=== PATIENT | male | born 1995 | race Caucasian/White ===

== ENCOUNTER 2019-02-22 08:51 | Emergency (ER) | payer OTHER ==
--- NOTE | 2019-02-22 10:06 | XRAY Report ---
Reason: injury Procedure Date: 02/22/2019 Accession Number: [id number] / [id number] Procedure: XR - Hand 3 View RT CPT Code: Final Report FULL RESULT: EXAM: RIGHT HAND RADIOGRAPHY EXAM DATE: 02/22/2019 09:39 AM. CLINICAL HISTORY: Injury. COMPARISON: None. TECHNIQUE: 3 views. FINDINGS: Bones: Normal. No fractures or bone lesions. Joints: Normal. No subluxations. Soft Tissues: Normal. No soft tissue swelling. IMPRESSION: Normal hand radiography. [facility]
--- NOTE | 2019-02-22 10:10 | ED Physician Documentation ---
PD HPI UPPER EXT INJURY - Stated complaint Stated Complaint: RT HAND PX - Chief complaint Chief Complaint: Trauma Ext - History obtained from History obtained from: Patient - History of Present Illness Location: Right, Hand Type of injury: Twist, Other (strangulation) Where injury occurred: Home Timing - onset: Yesterday Timing - duration: Days (1) Timing - details: Abrupt onset, Still present Improved by: Rest, Ice, Immobilization Worsened by: Moving, Palpating Associated symptoms: Swelling. No: Weakness, Numbness Similar symptoms before: Has not had sx before Recently seen: Not recently seen - Additonal information Additional information: 23 y/o male was assisting with a farm animal stringing it up and he had a rope wrapped around his hand and he was pulling on it and his Dad pulled on the other side of the rope and it squished his hand. He has developed swelling and pain in the hand and this is worse today. He does not have functional deficit. Review of Systems Constitutional: denies: Fever Nose: denies: Congestion Throat: denies: Sore throat Cardiac: denies: Chest pain / pressure Respiratory: denies: Dyspnea, Cough GI: denies: Nausea, Vomiting PD PAST MEDICAL HISTORY - Allergies Allergies/Adverse Reactions: Allergies Allergy/AdvReac Type Severity Reaction Status Date / Time Sulfa (Sulfonamide Allergy Hives Verified 02/22/19 09:18 Antibiotics) - Social History Does the pt smoke?: No Smoking Status: Never smoker PD ED PE NORMAL - Vitals Vital signs reviewed: Yes (hypertensive ) - General General: Alert and oriented X 3, No acute distress, Well developed/nourished - HEENT HEENT: Atraumatic, PERRL, EOMI - Respiratory Respiratory: No respiratory distress - Derm Derm: Normal color, Warm and dry, No rash - Extremities Extremities: Other (There is swelling and tenderness to the dorsum of the right hand over the 2nd, 3rd and 4th metacarpals. There is discoloration to the skin consistent with bruising. There is no fucntional deficit, no crepitance and the distal n/v is intact. ) - Neuro Neuro: Alert and oriented X 3, account liaison 2-12 intact, No motor deficit, No sensory deficit, Normal speech Eye Opening: Spontaneous Motor: Obeys Commands Verbal: Oriented GCS Score: 15 - Psych Psych: Normal mood, Normal affect Results - Vitals Vitals: Vital Signs - 24 hr 02/22/19 02/22/19 09:18 10:48 Temperature 37.1 C 36.6 C Heart Rate 70 75 Respiratory 18 17 Rate Blood Pressure 152/101 H 148/92 H O2 Saturation 99 98 Oxygen O2 Source Room air - Rads (name of study) hand Radiology: Prelim report reviewed (Impression: Normal hand radiography.), EMP read indepedently, See rad report Procedures - Splint (location) right hand Splint applied by: Nurse Type of splint: Fiberglass, Volar cock up Other: Patient tolerated well, No complications, Neurovascular intact, Good alignment PD MEDICAL DECISION MAKING - ED course Complexity details: reviewed results, re-evaluated patient, considered differential, d/w patient ED course: 23 y/o male with a compression injury to the right hand without evidence of fracture has improvement in the splint. He is instructed to wear it for comfort and expect resolution in 1-2 weeks. Departure - Departure Disposition: 01 Home, Self Care Clinical Impression: Contusion of right hand, initial encounter Condition: Stable Instructions: ED Sprain Hand Follow-Up: Gayathri Silva PA-C [Primary Care Provider] - Discharge Date/Time: 02/22/19 10:48
[2019-02-22 10:49] VITALS: BP 148/92
== END 2019-02-22 10:48 | disposition home or self-care (01) ==
LOC: ED 08:51
DX: S60.221A Contusion of right hand, initial encounter (principal); W23.0XXA Caught, crushed, jammed, or pinched between moving objects, initial encounter; Y93.K9 Activity, other involving animal care; Y92.009 Unspecified place in unspecified non-institutional (private) residence as the place of occurrence of the external cause
CPT/HCPCS: 29125; 99282; 99283

== ENCOUNTER 2019-10-05 12:35 | Emergency (ER) | payer OTHER ==
[2019-10-05] MEDS ORDERED: BUFFERED LIDOCAINE 10 ML SYRINGE SUBQ STA (12:42)
--- NOTE | 2019-10-05 12:43 | ED Physician Documentation ---
PD HPI LOWER EXT INJURY - Stated complaint Stated Complaint: TOE INJURY - History obtained from History obtained from: Patient (Walking through the [place] in flip-flops and the dorsum of the left foot at the level of the pinky toe was cut by a stick that kind of stabbed him. Tetanus is up-to-date.) - History of Present Illness Timing - onset: Today (Just prior to arrival) Review of Systems Constitutional: reports: Reviewed and negative Throat: reports: Reviewed and negative Cardiac: reports: Reviewed and negative PD PAST MEDICAL HISTORY - Allergies Allergies/Adverse Reactions: Allergies Allergy/AdvReac Type Severity Reaction Status Date / Time Sulfa (Sulfonamide Allergy Hives Verified 02/22/19 09:18 Antibiotics) - Social History Does the pt smoke?: No Smoking Status: Never smoker PD ED PE NORMAL - Vitals Vital signs reviewed: Yes - General General: Alert and oriented X 3, No acute distress - Extremities Extremities: Other (There is a 1.2 cm laceration over the dorsum of the left pinky toe at the level of the MTP without distal neurovascular compromise or bony tenderness. Good strength in extension.) - Neuro Neuro: Alert and oriented X 3, Normal speech Results - Vitals Vitals: Vital Signs - 24 hr 10/05/19 12:42 Temperature 36.9 C Heart Rate 96 Respiratory 16 Rate Blood Pressure 155/101 H O2 Saturation 98 Oxygen O2 Source Room air Procedures - Laceration (location) L foot Length in cm: 1.2 Wound type: Linear, Into subcut fat, Contaminated (with dirt grit, scrubbed out without residual) Neurovascular status: Sensory intact, Motor intact, Vascular intact Tendon involvement: Tendon intact Anesthesia: Lidocaine 1%, With bicarb Wound Preparation: Hibiclens, Irrigated copiously NS Skin layer closure: Nylon, Interrupted, Size #-0 - enter number (4-0), Sutures - enter # (6) Other: Tetanus UTD Complexity: Simple Departure - Departure Disposition: 01 Home, Self Care Clinical Impression: Foot laceration Qualifiers: Encounter type: initial encounter Laterality: left Qualified Code(s): S91.312A - Laceration without foreign body, left foot, initial encounter Condition: Good Record reviewed to determine appropriate education?: Yes Instructions: ED Laceration Foot Comments: Come back for any signs of infection which would include: Redness, swelling, drainage, increased pain, or fevers. You can wash it soap and water. Keep it covered and moist with bacitracin ointment which is available over the counter; avoid neosporin. Follow-up with your physician in About 14 days for suture removal.
[2019-10-05 13:18] VITALS: BP 140/94
== END 2019-10-05 13:17 | disposition home or self-care (01) ==
LOC: ED 12:35
DX: S91.312A Laceration without foreign body, left foot, initial encounter (principal); W22.8XXA Striking against or struck by other objects, initial encounter; Y93.01 Activity, walking, marching and hiking; Y92.821 Forest as the place of occurrence of the external cause
CPT/HCPCS: 12001; 99282; 99283

== ENCOUNTER 2019-10-20 07:21 | Outpatient (CLI) | payer OTHER ==
[2019-10-20 12:12] LABS: BASOPHILS % (AUTO) 0.7 %; EOSINOPHILS # (AUTO) 0.3 10^3/uL (0.0-0.7); EOSINOPHILS % (AUTO) 5.5 %; HGB - HEMOGLOBIN 15.1 g/dL (14.0-18.0); LYMPHOCYTES % (AUTO) 35.1 %; MEAN CORPUSCULAR HEMOGLOBIN 29.3 pg (27.0-31.0); MEAN CORPUSCULAR HGB CONC 32.3 g/dL (32.0-36.0); MEAN CORPUSCULAR VOLUME 90.7 fL (80.0-94.0); MEAN PLATELET VOLUME 9.8 fL (7.4-11.4); MONOCYTES # (AUTO) 0.5 10^3/uL (0.0-1.0); MONOCYTES % (AUTO) 9.6 %; NEUTROPHILS # (AUTO) 2.7 10^3/uL (1.5-6.6); NEUTROPHILS % (AUTO) 48.2 %; PLT - PLATELET COUNT 234 10^3/uL (130-450); RED BLOOD COUNT 5.15 10^6/uL (4.70-6.10); WHITE BLOOD COUNT 5.6 x10^3/uL (4.8-10.8)
[2019-10-20 12:46] LABS: ALBUMIN 4.3 g/dL (3.2-5.5); ALBUMIN/GLOBULIN RATIO 1.7 (1.0-2.2); ALKALINE PHOSPHATASE 39 IU/L (42-121); ALT ALANINE AMINOTRANSFERASE 25 IU/L (10-60); AST ASPARTATE AMINOTRANSFERASE 19 IU/L (10-42); BILIRUBIN,TOTAL 0.6 mg/dL (0.2-1.0); BUN - BLOOD UREA NITROGEN 15 mg/dL (6-20); CALCIUM 9.2 mg/dL (8.5-10.3); CARBON DIOXIDE - CO2 29 mmol/L (21-32); CHLORIDE 103 mmol/L (101-111); CHOL/HDL RATIO 2.6 (<5.0); CHOLESTEROL 150 mg/dL; CREATININE 0.9 mg/dL (0.6-1.2); GLUCOSE 97 mg/dL (70-100); HDL CHOLESTEROL 58 mg/dL; LDL CHOLESTEROL,CALCULATED 84 mg/dL; LDL/HDL RATIO 1.4 (<3.6); SODIUM 138 mmol/L (135-145); TOTAL PROTEIN 6.9 g/dL (6.7-8.2); VLDL CHOLESTEROL 8 mg/dL
== END 2019-10-20 23:59 | disposition home or self-care (01) ==
LOC: LAB.WCP 07:21
PROVIDERS: ATTEND Physician Assistant Medical
DX: Z00.00 Encounter for general adult medical examination without abnormal findings (principal)
CPT/HCPCS: 36415; 80053; 80061; 83721; 84443; 85025

== ENCOUNTER 2021-01-24 11:03 | Day surgery (SDC) | payer OTHER ==
[~2021-01-24 11:03] MED LIST: CEFAZOLIN SODIUM IN 0.9 % NACL 2 GM/100 ML BAG IV ONE
[2021-01-24] MEDS ORDERED: LACTATED RINGERS 1,000 ML IV ONE (11:28)
[2021-01-24] MEDS ORDERED: BUPIVACAINE 0.5% PF 10 ML VIAL ONE (12:07)
[2021-01-24] MEDS ORDERED: LIDOCAINE 2%-EPI 1:100000 20 ML MDV ONE (12:07)
[2021-01-24] MEDS ORDERED: ceFAZolin 1 GM VIAL ONE (12:07)
--- NOTE | 2021-01-24 12:08 | ANESTHESIA ---
Pre-Anesthesia VS, & Labs - Diagnosis right inguinal hernia - Procedure right inguinal hernia repair Vital Signs: Temp Pulse Resp BP Pulse Ox 37.2 C 84 16 151/98 H 100 01/24/21 11:15 01/24/21 11:15 01/24/21 11:15 01/24/21 11:15 01/24/21 11:15 Height: 6 ft 2 in Weight (kg): 102 kg Body Mass Index: 28.8 BMI Classification: Overweight - NPO >8 hours Home Medications and Allergies Home Medications: Ambulatory Orders Albuterol Sulfate [Proair Hfa Inhaler] 1 - 2 puffs INH Q4H PRN 01/18/21 Albuterol Sulfate [Proair Hfa Inhaler] 1 - 2 puffs INH Q4H PRN 01/18/21 Allergies/Adverse Reactions: Allergies Allergy/AdvReac Type Severity Reaction Status Date / Time bee venom protein (honey bee) Allergy Unknown Verified 10/07/19 10:46 Sulfa (Sulfonamide Allergy Hives Verified 02/22/19 09:18 Antibiotics) Anes History & Medical History - Anesthetic History Anesthesia Complications: reports: No previous complications - Medical History Cardiovascular: reports: None Pulmonary: reports: Asthma Gastrointestinal: reports: Other Urinary: reports: None Musculoskeletal: reports: Scoliosis, Chronic back pain Endocrine/Autoimmune: reports: None Skin: reports: None Smoking Status: Never smoker History of Cancer?: No - Surgical History Orthopedic: reports: Other (knee scope) Exam General: Alert, Oriented x3 Mallampati classification: II Thyromental Distance: greater than 6 cm Respiratory: Lungs clear Cardiovascular: Regular rate Plan Anesthesia Type: General Consent for Procedure(s) Verified and Reviewed: Yes Code Status: Attempt Resuscitation ASA classification: 2-Mild systemic disease Is this case an emergency?: No
[2021-01-24] MEDS ORDERED: fentaNYL 100 MCG/2 ML VIAL IVP PRN (12:09)
[2021-01-24] MEDS ORDERED: MORPHINE 2 MG/ML CARPUJECT IVP PRN (12:09)
[2021-01-24] MEDS ORDERED: NALOXONE 0.4 MG/ML VIAL IVP PRN (12:09)
[2021-01-24] MEDS ORDERED: ONDANSETRON 4 MG/2 ML VIAL IVP PRN ×2 (12:09→15:07)
[2021-01-24] MEDS ORDERED: METOCLOPRAMIDE 10 MG/2 ML VIAL IVP PRN (12:09)
[2021-01-24] MEDS ORDERED: ATROPINE ABBOJECT 1 MG/10 ML SYRINGE IVP PRN (12:09)
[2021-01-24] MEDS ORDERED: HYDROmorphone 0.5 MG/0.5 ML SYRINGE IVP PRN (12:09)
[2021-01-24] MEDS ORDERED: ePHEDrine 50 MG/ML VIAL IVP PRN (12:09)
[2021-01-24] MEDS ORDERED: LIDOCAINE 2%-EPI 1:100000 20 ML MDV SUBQ ONE (12:23)
[2021-01-24] MEDS ORDERED: BUPIVACAINE 0.5% PF 30 ML VIAL SUBQ ONE (12:23)
[2021-01-24] MEDS ORDERED: ceFAZolin 1 GM VIAL IR ONE (12:23)
[2021-01-24] MEDS ORDERED: LACTATED RINGERS 1,000 ML IV SCH (13:00)
[2021-01-24] MEDS ORDERED: SODIUM CHLORIDE 0.9% 10 ML VIAL IVP ONE (13:21)
[2021-01-24] MEDS ORDERED: LIDOCAINE-MPF 2% 5 ML VIAL ONE (13:40)
[2021-01-24] MEDS ORDERED: PROPOFOL 200 MG/20 ML VIAL IVP ONE (13:40)
[2021-01-24] MEDS ORDERED: fentaNYL 100 MCG/2 ML VIAL ONE (13:40)
[2021-01-24] MEDS ORDERED: MIDAZOLAM 2 MG/2 ML VIAL ONE (13:40)
[2021-01-24] MEDS ORDERED: ONDANSETRON 4 MG/2 ML VIAL ONE (14:28)
[2021-01-24] MEDS ORDERED: DEXAMETHASONE 4 MG/ML VIAL ONE (14:28)
--- NOTE | 2021-01-24 15:06 | OPERATIVE REPORT ---
Operative Report - General Procedure Date: 01/24/21 Planned Procedure: Repair of right inguinal hernia Pre-Op Diagnosis: Symptomatic right inguinal hernia Procedure Performed: Repair of right inguinal hernia Post Op Diagnosis: Somatic direct right inguinal hernia - Procedure Note Primary Surgeon: Sanju Anesthesia Provider: CHRIS Velazco Anesthesia Technique: General LMA, Local Pathology: None Estimated Blood Loss (mL): 10 Indications: Large and symptomatic right inguinal hernia Findings: Large direct right inguinal hernia with obliteration of the inguinal floor Complications: None apparent - Other Other Information/Narrative: After obtaining informed consent, the patient is brought to the operating room and placed in the supine position on the operating table. Following successful induction of general endotracheal anesthesia, appropriate padding of all bony prominences, and placement of appropriate monitors, the abdomen was prepped and draped in the standard surgical fashion. A timeout was held per scope protocol. All elements of the surgical safety checklist were followed before, during, and after the procedure. We began the procedure by infiltrating a mixture of local anesthetics medial to the anterior superior iliac spine on the right. This was done to create an ileal inguinal nerve block. We then selected a site for an incision in the right lower quadrant just superior and lateral to the right pubic tubercle. This area was anesthetized with additional local anesthetic and an incision was created here.The incision was carried down through the skin and subcutaneous tissue to reveal the fascia of the external oblique aponeurosis. Retractor was placed and the aponeurosis was opened in direction of its fibers. The ilioing uinal nerve was immediately identified. We continued by identifying the spermatic cord and gently encircling it with a Danny drain. The hernia sac was carefully dissected free from the cord structures and was noted to be in the inferior lateral position. It consisted primarily of a large direct inguinal hernia. The hernia contents were placed back into the abdominal cavity. We elected to repair the hernia with a large Prolene hernia system mesh implant. This was dipped in Ancef containing solution and then deployed into the defect. The posterior leaflet was straightened and flattened in the preperitoneal space. The anterior leaflet was then nicked medially to provide a place for the spermatic cord and then closed with a Prolene suture. The more inferior aspect was then sewn to Flaco's ligament medially. Laterally it was tucked under the external beak aponeurosis. The wound was checked for hemostasis and irrigated with warm saline solution. It was aspirated free of all fluid and particulate matter. The extra oblique aponeurosis was then closed with a running locking Vicryl suture Ebony's fascia was closed with Vicryl suture and Monocryl stitches were placed in the skin. All sponge, needle, and instrument counts were correct at the conclusion of the case. The patient was allowed awaken from anesthesia without difficulty and taken to the postanesthesia care unit in good condition.
[2021-01-24] MEDS ORDERED: IBUPROFEN 600 MG TABLET PO PRN (15:07)
[2021-01-24] MEDS ORDERED: oxyCODONE 5 MG TABLET PO PRN (15:07)
[2021-01-24] MEDS ORDERED: ACETAMINOPHEN 325 MG TABLET PO PRN (15:07)
[2021-01-24] MEDS ORDERED: LACTATED RINGERS 350 ML IV ONE (15:09)
[2021-01-24] MEDS ORDERED: ACETAMINOPHEN 1,000 MG/100 ML 100 ML IV PRN (15:14)
--- NOTE | 2021-01-24 15:14 | ANESTHESIA POST OP EVALUATION ---
Anesthesia Post Eval - Post Anesthesia Eval Vitals: Last Vital Signs Temp 37.2 C 01/24/21 11:15 Pulse 84 01/24/21 11:15 Resp 16 01/24/21 11:15 BP 151/98 H 01/24/21 11:15 Pulse Ox 100 01/24/21 11:15 CV Function Including HR & BP: Stable Pain Control: Satisfactory Nausea & Vomiting: Negative Mental Status: Baseline Respiratory Status: Airway Patent Hydration Status: Satisfactory Anesthesia Complications: None
[2021-01-24 16:17] VITALS: BP 147/84
== END 2021-01-24 11:04 | disposition home or self-care (01) ==
LOC: SDS 11:03
PROVIDERS: ATTEND Surgery
DX: K40.90 Unilateral inguinal hernia, without obstruction or gangrene, not specified as recurrent (principal); M41.9 Scoliosis, unspecified; G89.29 Other chronic pain; M54.9 Dorsalgia, unspecified; Z87.891 Personal history of nicotine dependence
CPT/HCPCS: 49505; C1781; J0690; J7120

== ENCOUNTER 2022-04-03 08:04 | Emergency (ER) | payer BC, OTHER ==
[2022-04-03] MEDS ORDERED: AMOX/CLAV 875 MG/125 MG TABLET PO STA (08:13)
--- NOTE | 2022-04-03 08:14 | ED Physician Documentation ---
PD HPI WOUND RECHECK - Stated complaint Stated Complaint: FACIAL DOG BITE - Chief complaint Chief Complaint: Wound - Histroy obtained from History obtained from: Patient - Additional information Additional information: Otherwise healthy 26-year-old gentleman with up-to-date tetanus status was playing with his dog last night and she accidentally bit him on the inside of the lower lip. No other injuries. This happened around 6 PM yesterday. The dog is healthy and fully immunized as well. He went [facility] but waited for several hours without being seen so went home and now presents this morning for evaluation. Review of Systems Nose: denies: Epistaxis Neurologic: denies: Headache, Head injury, LOC PD PAST MEDICAL HISTORY - Past Medical History Cardiovascular: None Respiratory: Asthma Endocrine/Autoimmune: None GI: Other : None HEENT: Chronic sinusitis Psych: None Musculoskeletal: Scoliosis, Chronic back pain Derm: None - Past Surgical History Past Surgical History: Yes Ortho: Other (knee scope) - Present Medications Home Medications: Ambulatory Orders Medication Instructions Recorded Confirmed Albuterol Sulfate [Proair Hfa 1 - 2 puffs INH Q4H PRN 01/18/21 01/18/21 Inhaler] Docusate Sodium 100Mg Capsule 200 mg PO DAILY #20 cap 01/24/21 [Colace 100Mg Capsule] Ondansetron Odt [Zofran Odt] 4 mg TL Q6H PRN #10 tablet 01/24/21 oxyCODONE [Roxicodone] 5 mg PO Q4-6H PRN #20 tablet 01/24/21 Amox/Clav 875/125 [Augmentin] 1 each PO Q12H #10 tablet 04/03/22 - Allergies Allergies/Adverse Reactions: Allergies Allergy/AdvReac Type Severity Reaction Status Date / Time bee venom protein (honey bee) Allergy Unknown Verified 04/03/22 08:12 Sulfa (Sulfonamide Allergy Hives Verified 04/03/22 08:12 Antibiotics) - Social History Does the pt smoke?: No Smoking Status: Never smoker Does the pt drink ETOH?: Yes Does the pt have substance abuse?: No - Immunizations Immunizations are current?: Yes Immunizations: TDAP current <10years - POLST Patient has POLST: No PD ED PE NORMAL - Vitals Vital signs reviewed: Yes - General General: Alert and oriented X 3, No acute distress - HEENT HEENT: PERRL, EOMI - Neck Neck: Supple, no meningeal sign, No bony TTP - Neuro Neuro: Alert and oriented X 3, Normal speech - Psych Psych: Normal mood, Normal affect PD ED PE EXPANDED - HEENT HEENT Visual: 1 - laceration (2 cm jagged shallow laceration kind of at the intersection between the buccal and gingival mucosa. No loose teeth.) Results - Vitals Vitals: Vital Signs - 24 hr 04/03/22 08:09 Temperature 36.4 C L Heart Rate 97 Respiratory 16 Rate Blood Pressure 153/90 H O2 Saturation 97 Oxygen O2 Source Room air PD Medical Decision Making - ED course Reviewed Lab Results: Not applicable Drug Therapy Requiring Monitoring for Toxicity: Not applicable Procedural Risk Factors Specific to Patient: Not applicable ED course: 26-year-old gentleman with a shallow laceration of the mucosal surface of the inner lower lip from a dog bite. Will place on Augmentin. He is up-to-date on tetanus. Given wound care advice but this should heal fine without closure especially given the time course. Departure - Departure Disposition: 01 Home, Self Care Clinical Impression: Laceration of mouth Qualifiers: Encounter type: initial encounter Qualified Code(s): S01.512A - Laceration without foreign body of oral cavity, initial encounter Condition: Good Record reviewed to determine appropriate education?: Yes Instructions: ED Laceration Mouth Prescriptions: Amox/Clav 875/125 [Augmentin] 1 each PO Q12H #10 tablet Comments: Again, avoid acidic foods and sharp foods until its healed, salt water swishes 3 times a day to clean it out. Return for signs of infection which would include swelling, increased pain, fever.
[2022-04-03 08:15] VITALS: BP 153/90
--- OUTSIDE RECORDS SUMMARY | 2022-04-03 08:23 | EXTERNAL MEDICAL SUMMARY RPT | Continuity of Care Document ---
:1995 Author Organization [facility] Address [address] [place] [address] Phone Care Team Providers Name Role Phone Gayathri Silva Unavailable Unavailable Allergies and Intolerances date description facility type (no date) Sulfa (Sulfonamide Antibiotics) [facility] (unknown) (no date) bee pollen [facility] (unknown) Encounters No information. Functional Status No information. Immunizations No information. Medications No information. Problems date description facility 2022-04-02 00:00 Patient left without being seen [facility] Procedures No information. Results/Labs test date author facility value unit interpret ation Result panel 1 (unknown) (no (unknown) (unknown) (no value) (units (unk nown) date) unknown) (unknown) (no (unknown) (unknown) 0.3 mg IM PRN (units ( unknown) date) PRN (Reason: unknown) Allergic Reaction) (unknown) (no (unknown) (unknown) [id number] (units (unkno wn) date) unknown) (unknown) (no (unknown) (unknown) 04/02/22 (units (unkno wn) date) unknown) (unknown) (no (unknown) (unknown) 2-Mal) (units (unkno wn) date) unknown) (unknown) (no (unknown) (unknown) 21:00 (units (unkno wn) date) unknown) (unknown) (no (unknown) (unknown) ANTIBIOTICS)] (units ( unknown) date) unknown) (unknown) (no (unknown) (unknown) Age/Sex: 26 / M (units (unknown) date) unknown) (unknown) (no (unknown) (unknown) Allergies (units (unkn own) date) unknown) (unknown) (no (unknown) (unknown) Allergy/AdvReac (units (unknown) date) Type Severity unknown) Reaction Status Date / Time (unknown) (no (unknown) (unknown) Antibiotics) (units (u nknown) date) unknown) (unknown) (no (unknown) (unknown) Blood Pressure (units (unknown) date) 157/103 H unknown) 04/02/22 21:00 (unknown) (no (unknown) (unknown) Blood Pressure (units (unknown) date) 157/103 H unknown) (unknown) (no (unknown) (unknown) Chief (units (unkno wn) date) Complaint: unknown) Animal Bite (unknown) (no (unknown) (unknown) Course (units (unkno wn) date) unknown) (unknown) (no (unknown) (unknown) : 1995 (units (unknown) date) Acct:[id number] unknown) (unknown) (no (unknown) (unknown) Date of (units (unkno wn) date) Service: unknown) 04/02/22 (unknown) (no (unknown) (unknown) Departure (units (unkn own) date) unknown) (unknown) (no (unknown) (unknown) Discharge Plan (units (unknown) date) unknown) (unknown) (no (unknown) (unknown) ER Physician: (units ( unknown) date) Rashida Chinchilla unknown) D.O. (unknown) (no (unknown) (unknown) Emergency (units (unkn own) date) Report unknown) (unknown) (no (unknown) (unknown) Exam (units (unkno wn) date) unknown) (unknown) (no (unknown) (unknown) General (units (unkno wn) date) unknown) (unknown) (no (unknown) (unknown) H/O: knee (units (unkn own) date) surgery unknown) (unknown) (no (unknown) (unknown) HPI - Animal (units (u nknown) date) Bite unknown) (unknown) (no (unknown) (unknown) History of (units (unk nown) date) repair of unknown) pyloric stenosis (unknown) (no (unknown) (unknown) Home (units (unkno wn) date) Medications unknown) (unknown) (no (unknown) (unknown) Initial Vital (units ( unknown) date) Signs unknown) (unknown) (no (unknown) (unknown) Initial Vital (units ( unknown) date) Signs: unknown) (unknown) (no (unknown) (unknown) [facility] (units (unknown) date) [address] unknown) [place] [address] (unknown) (no (unknown) (unknown) Limitations: no (units (unknown) date) limitations unknown) (unknown) (no (unknown) (unknown) Medication (units (unk nown) date) Instructions unknown) Recorded Confirmed (unknown) (no (unknown) (unknown) Mode of (units (unkno wn) date) arrival: unknown) Ambulatory (unknown) (no (unknown) (unknown) No Action (units (unkn own) date) unknown) (unknown) (no (unknown) (unknown) Oxygen Delivery (units (unknown) date) Method 04/02/22 unknown) 21:00 (unknown) (no (unknown) (unknown) Oxygen Delivery (units (unknown) date) Method Room Air unknown) (unknown) (no (unknown) (unknown) Patient History (units (unknown) date) unknown) (unknown) (no (unknown) (unknown) Patient: (units (unkno wn) date) Nikhil Batista J unknown) MR#: [id number] (unknown) (no (unknown) (unknown) Prescriptions: (units (unknown) date) unknown) (unknown) (no (unknown) (unknown) Pulse Oximetry (units (unknown) date) 99 04/02/22 unknown) 21:00 (unknown) (no (unknown) (unknown) Pulse Oximetry (units (unknown) date) 99 unknown) (unknown) (no (unknown) (unknown) Pulse Rate 103 (units (unknown) date) H 04/02/22 21:00 unknown) (unknown) (no (unknown) (unknown) Pulse Rate 103 (units (unknown) date) H unknown) (unknown) (no (unknown) (unknown) ROS (units (unkno wn) date) Unobtainable: unknown) All systems reviewed + are unremarkable except as noted in HPI (unknown) (no (unknown) (unknown) Referrals: (units (unk nown) date) unknown) (unknown) (no (unknown) (unknown) Related Data (units (u nknown) date) unknown) (unknown) (no (unknown) (unknown) Respiratory (units (un known) date) Rate 18 04/02/22 unknown) 21:00 (unknown) (no (unknown) (unknown) Respiratory (units (un known) date) Rate 18 unknown) (unknown) (no (unknown) (unknown) Review of (units (unkn own) date) Systems unknown) (unknown) (no (unknown) (unknown) Signed By: (units (unk nown) date) unknown) (unknown) (no (unknown) (unknown) Smoking Status: (units (unknown) date) Former smoker unknown) (unknown) (no (unknown) (unknown) Social History (units (unknown) date) (Reviewed unknown) 04/02/22 @ 23:38 by Rashida Chinchilla DO) (unknown) (no (unknown) (unknown) Source: patient (units (unknown) date) unknown) (unknown) (no (unknown) (unknown) Stated (units (unkno wn) date) Complaint: unknown) family dog bite on his mouth (unknown) (no (unknown) (unknown) Substance Use (units ( unknown) date) Type: does not unknown) use (unknown) (no (unknown) (unknown) Sulfa (units (unkno wn) date) (Sulfonamide unknown) Allergy Unknown Verified 01/03/19 17:04 (unknown) (no (unknown) (unknown) Surgical (units (unkno wn) date) History unknown) (unknown) (no (unknown) (unknown) Temperature 98 (units (unknown) date) F 04/02/22 21:00 unknown) (unknown) (no (unknown) (unknown) Temperature 98 (units (unknown) date) F unknown) (unknown) (no (unknown) (unknown) Time Seen by (units (u nknown) date) Provider: unknown) 04/02/22 23:36 (unknown) (no (unknown) (unknown) Vital Signs - 8 (units (unknown) date) hr unknown) (unknown) (no (unknown) (unknown) Vital Signs (units (un known) date) unknown) (unknown) (no (unknown) (unknown) Vital signs: (units (u nknown) date) unknown) (unknown) (no (unknown) (unknown) Gayathri Silva, (units (unknown) date) ROBBIN [Primary unknown) Care Provider] (unknown) (no (unknown) (unknown) [SULFA (units (unkno wn) date) (SULFONAMIDE unknown) (unknown) (no (unknown) (unknown) alcohol intake (units (unknown) date) frequency: a few unknown) times a week (unknown) (no (unknown) (unknown) and below (units (unkn own) date) unknown) (unknown) (no (unknown) (unknown) bee pollen [BEE (units (unknown) date) POLLEN] Allergy unknown) Unknown Verified 01/03/19 17:04 (unknown) (no (unknown) (unknown) epinephrine 0.3 (units (unknown) date) mg/0.3 mL 0.3 mg unknown) IM PRN PRN Allergic Reaction 01/03/19 01/03/19 (unknown) (no (unknown) (unknown) epinephrine (units (un known) date) [EpiPen 2-Mal] unknown) 0.3 MG/0.3 ML auto-injector (unknown) (no (unknown) (unknown) injection, (units (unk nown) date) auto-injector unknown) (EpiPen (unknown) (no (unknown) (unknown) tobacco type: (units ( unknown) date) smokeless unknown) tobacco Result panel 2 (unknown) (no (unknown) (unknown) (no value) (units (unk nown) date) unknown) (unknown) (no (unknown) (unknown) 0.3 mg IM PRN (units ( unknown) date) PRN (Reason: unknown) Allergic Reaction) (unknown) (no (unknown) (unknown) [id number] (units (unkno wn) date) unknown) (unknown) (no (unknown) (unknown) 04/02/22 (units (unkno wn) date) unknown) (unknown) (no (unknown) (unknown) 2-Mal) (units (unkno wn) date) unknown) (unknown) (no (unknown) (unknown) 21:00 (units (unkno wn) date) unknown) (unknown) (no (unknown) (unknown) ANTIBIOTICS)] (units ( unknown) date) unknown) (unknown) (no (unknown) (unknown) Age/Sex: 26 / M (units (unknown) date) unknown) (unknown) (no (unknown) (unknown) Allergies (units (unkn own) date) unknown) (unknown) (no (unknown) (unknown) Allergy/AdvReac (units (unknown) date) Type Severity unknown) Reaction Status Date / Time (unknown) (no (unknown) (unknown) Antibiotics) (units (u nknown) date) unknown) (unknown) (no (unknown) (unknown) Blood Pressure (units (unknown) date) 157/103 H unknown) 04/02/22 21:00 (unknown) (no (unknown) (unknown) Blood Pressure (units (unknown) date) 157/103 H unknown) (unknown) (no (unknown) (unknown) Chief (units (unkno wn) date) Complaint: unknown) Animal Bite (unknown) (no (unknown) (unknown) Course (units (unkno wn) date) unknown) (unknown) (no (unknown) (unknown) : 1995 (units (unknown) date) Acct:[id number] unknown) (unknown) (no (unknown) (unknown) Date of (units (unkno wn) date) Service: unknown) 04/02/22 (unknown) (no (unknown) (unknown) Departure (units (unkn own) date) unknown) (unknown) (no (unknown) (unknown) Discharge Plan (units (unknown) date) unknown) (unknown) (no (unknown) (unknown) ER Physician: (units ( unknown) date) Rashida Chinchilla unknown) D.O. (unknown) (no (unknown) (unknown) Emergency (units (unkn own) date) Report unknown) (unknown) (no (unknown) (unknown) Exam (units (unkno wn) date) unknown) (unknown) (no (unknown) (unknown) General (units (unkno wn) date) unknown) (unknown) (no (unknown) (unknown) H/O: knee (units (unkn own) date) surgery unknown) (unknown) (no (unknown) (unknown) HPI - Animal (units (u nknown) date) Bite unknown) (unknown) (no (unknown) (unknown) History of (units (unk nown) date) repair of unknown) pyloric stenosis (unknown) (no (unknown) (unknown) Home (units (unkno wn) date) Medications unknown) (unknown) (no (unknown) (unknown) Initial Vital (units ( unknown) date) Signs unknown) (unknown) (no (unknown) (unknown) Initial Vital (units ( unknown) date) Signs: unknown) (unknown) (no (unknown) (unknown) [facility] (units (unknown) date) [address] unknown) [place] [address] (unknown) (no (unknown) (unknown) Limitations: no (units (unknown) date) limitations unknown) (unknown) (no (unknown) (unknown) Medication (units (unk nown) date) Instructions unknown) Recorded Confirmed (unknown) (no (unknown) (unknown) Mode of (units (unkno wn) date) arrival: unknown) Ambulatory (unknown) (no (unknown) (unknown) No Action (units (unkn own) date) unknown) (unknown) (no (unknown) (unknown) Oxygen Delivery (units (unknown) date) Method 04/02/22 unknown) 21:00 (unknown) (no (unknown) (unknown) Oxygen Delivery (units (unknown) date) Method Room Air unknown) (unknown) (no (unknown) (unknown) Patient History (units (unknown) date) unknown) (unknown) (no (unknown) (unknown) Patient: (units (unkno wn) date) Nikhil Batista J unknown) MR#: [id number] (unknown) (no (unknown) (unknown) Prescriptions: (units (unknown) date) unknown) (unknown) (no (unknown) (unknown) Pulse Oximetry (units (unknown) date) 99 04/02/22 unknown) 21:00 (unknown) (no (unknown) (unknown) Pulse Oximetry (units (unknown) date) 99 unknown) (unknown) (no (unknown) (unknown) Pulse Rate 103 (units (unknown) date) H 04/02/22 21:00 unknown) (unknown) (no (unknown) (unknown) Pulse Rate 103 (units (unknown) date) H unknown) (unknown) (no (unknown) (unknown) ROS (units (unkno wn) date) Unobtainable: unknown) All systems reviewed + are unremarkable except as noted in HPI (unknown) (no (unknown) (unknown) Referrals: (units (unk nown) date) unknown) (unknown) (no (unknown) (unknown) Related Data (units (u nknown) date) unknown) (unknown) (no (unknown) (unknown) Respiratory (units (un known) date) Rate 18 04/02/22 unknown) 21:00 (unknown) (no (unknown) (unknown) Respiratory (units (un known) date) Rate 18 unknown) (unknown) (no (unknown) (unknown) Review of (units (unkn own) date) Systems unknown) (unknown) (no (unknown) (unknown) Signed By: (units (unk nown) date) unknown) (unknown) (no (unknown) (unknown) Smoking Status: (units (unknown) date) Former smoker unknown) (unknown) (no (unknown) (unknown) Social History (units (unknown) date) (Reviewed unknown) 04/02/22 @ 23:38 by Rashida Chinchilla DO) (unknown) (no (unknown) (unknown) Source: patient (units (unknown) date) unknown) (unknown) (no (unknown) (unknown) Stated (units (unkno wn) date) Complaint: unknown) family dog bite on his mouth (unknown) (no (unknown) (unknown) Substance Use (units ( unknown) date) Type: does not unknown) use (unknown) (no (unknown) (unknown) Sulfa (units (unkno wn) date) (Sulfonamide unknown) Allergy Unknown Verified 01/03/19 17:04 (unknown) (no (unknown) (unknown) Surgical (units (unkno wn) date) History unknown) (unknown) (no (unknown) (unknown) Temperature 98 (units (unknown) date) F 04/02/22 21:00 unknown) (unknown) (no (unknown) (unknown) Temperature 98 (units (unknown) date) F unknown) (unknown) (no (unknown) (unknown) Time Seen by (units (u nknown) date) Provider: unknown) 04/02/22 23:36 (unknown) (no (unknown) (unknown) Vital Signs - 8 (units (unknown) date) hr unknown) (unknown) (no (unknown) (unknown) Vital Signs (units (un known) date) unknown) (unknown) (no (unknown) (unknown) Vital signs: (units (u nknown) date) unknown) (unknown) (no (unknown) (unknown) Gayathri Silva, (units (unknown) date) PA-C [Primary unknown) Care Provider] (unknown) (no (unknown) (unknown) [SULFA (units (unkno wn) date) (SULFONAMIDE unknown) (unknown) (no (unknown) (unknown) alcohol intake (units (unknown) date) frequency: a few unknown) times a week (unknown) (no (unknown) (unknown) and below (units (unkn own) date) unknown) (unknown) (no (unknown) (unknown) bee pollen [BEE (units (unknown) date) POLLEN] Allergy unknown) Unknown Verified 01/03/19 17:04 (unknown) (no (unknown) (unknown) epinephrine 0.3 (units (unknown) date) mg/0.3 mL 0.3 mg unknown) IM PRN PRN Allergic Reaction 01/03/19 01/03/19 (unknown) (no (unknown) (unknown) epinephrine (units (un known) date) [EpiPen 2-Mal] unknown) 0.3 MG/0.3 ML auto-injector (unknown) (no (unknown) (unknown) injection, (units (unk nown) date) auto-injector unknown) (EpiPen (unknown) (no (unknown) (unknown) tobacco type: (units ( unknown) date) smokeless unknown) tobacco Social History date description facility 2022-04-02 00[facility] date measurement value units 2022-04-02 00:00 BMI 28.5 kg/m2 2022-04-02 00:00 BP_diastolic 103 mmHg 2022-04-02 00:00 BP_systolic 157 mmHg 2022-04-02 00:00 heart_rate 103 /min 2022-04-02 00:00 height_metric 187.96 cm 2022-04-02 00:00 height_standard 74 in 2022-04-02 00:00 o2_saturation 99 % 2022-04-02 00:00 respiration_rate 18 /min 2022-04-02 00:00 temperature_metric 36.67 C 2022-04-02 00:00 temperature_standard 98 F 2022-04-02 00:00 weight_metric 100.69 kg 2022-04-02 00:00 weight_standard 221.98 lb
== END 2022-04-03 08:25 | disposition home or self-care (01) ==
LOC: ED 08:04
DX: S01.512A Laceration without foreign body of oral cavity, initial encounter (principal); W54.0XXA Bitten by dog, initial encounter
CPT/HCPCS: 99282; 99283; A9270